=== PATIENT | male | born 2000 | race American Indian/Alaskan Native ===

== ENCOUNTER 2021-06-08 14:40 | Emergency (ER) | payer SELFPAY ==
--- NOTE | 2021-06-08 19:21 | Event Note ---
ED Screening Note Date of service: 06/08/21 Time: 19:19 ED Screening Note: 21-year-old male patient presents to the emergency department with complaints of dizziness, nausea, lightheadedness, and chills starting 2 days ago. Patient has not been tested for COVID-19 since his symptoms began. Patient states his symptoms began after drinking alcohol. No history of similar symptoms. General: Awake, appropriately interactive. Anxious, tearful. Neck: Supple. Full range of motion intact. Cardiovascular: Normal peripheral perfusion. Pulmonary: No respiratory distress. Patient is speaking normally without use of accessory muscles. Skin: No apparent rashes or lesions. Neurological: No facial asymmetry. Speech is clear. Follows commands. Patient is alert and oriented. Musculoskeletal: Moves all four extremities spontaneously with normal range of motion. I have greeted and performed a focused rapid initial assessment of this patient. A comprehensive ED assessment and evaluation of the patient, analysis of all test results, and completion of the medical decision-making process will be conducted by additional ED providers. This initial assessment/diagnostic orders/clinical plan/treatment(s) is/are subject to change based on patients health status, clinical progression and re-assessment. Further treatment and workup at subsequent clinical provider's discretion. Patient/guardian urged not to elope from the ED as their condition may be serious if not clinically assessed and managed.
[2021-06-08 20:07] LABS: Basophils % (Auto) 0.4 % (0.0-1.8); Eosinophils % (Auto) 0.2 % (0.0-4.3); Hematocrit 48.6 % (35.5-45.6); Hemoglobin 16.9 gm/dl (11.8-15.2); Lymphocytes # (Auto) 1.9 K/mm3 (1.2-5.4); Lymphocytes % (Auto) 27.2 % (13.4-35.0); Mean Corpuscular HGB Conc 35 % (32-34); Mean Corpuscular Volume 92 fl (84-94); Monocytes # (Auto) 0.7 K/mm3 (0.0-0.8); Monocytes % (Auto) 9.7 % (0.0-7.3); Platelet Count 161 K/mm3 (140-440); Red Blood Count 5.29 M/mm3 (3.65-5.03); Red Cell Distribution Width 13.6 % (13.2-15.2)
[2021-06-08 20:11] LABS: Alanine Aminotransferase 13 units/L (7-56); Albumin 5.1 g/dL (3.9-5); BUN/Creatinine Ratio 16; Blood Urea Nitrogen 16 mg/dL (9-20); Calcium 10.5 mg/dL (8.4-10.2); Hemolysis Index 11
[2021-06-08 22:51] LABS: Amphetamine Screen,Urine Negative; Benzodiazepines Screen,Urine Negative; Cocaine Screen,Urine Negative; Methadone Screen,Urine Negative; Opiate Screen,Urine Negative
[2021-06-08 23:03] LABS: Cannabinoid Screen,Urine Positive
[2021-06-09] MEDS ORDERED: ONDANSETRON 4 MG ODT TAB PO ONE (20:41)
[2021-06-09] MEDS ORDERED: ACETAMINOPHEN 500 MG TAB PO ONE (20:41)
[2021-06-09] MEDS ORDERED: SODIUM CHLORIDE 0.9% 1000 ML 1,000 ML IV ONE (20:52)
[2021-06-09] MEDS ORDERED: FAMOTIDINE 20 MG/2 ML INJ IV ONE (20:52)
[2021-06-09 21:37] LABS: Basophils % (Auto) 0.4 % (0.0-1.8); Eosinophils % (Auto) 0.3 % (0.0-4.3); Lymphocytes % (Auto) 29.9 % (13.4-35.0); Mean Corpuscular HGB Conc 36 % (32-34); Mean Corpuscular Volume 91 fl (84-94); Monocytes # (Auto) 0.7 K/mm3 (0.0-0.8); Monocytes % (Auto) 10.2 % (0.0-7.3); Platelet Count 159 K/mm3 (140-440); Red Cell Distribution Width 13.4 % (13.2-15.2)
[2021-06-09 21:38] LABS: Hematocrit 45.7 % (35.5-45.6); Hemoglobin 16.4 gm/dl (11.8-15.2)
[2021-06-09 21:57] LABS: Alanine Aminotransferase 13 units/L (7-56); Albumin 5.1 g/dL (3.9-5); BUN/Creatinine Ratio 16; Blood Urea Nitrogen 14 mg/dL (9-20); Calcium 10.2 mg/dL (8.4-10.2); Hemolysis Index 13
--- NOTE | 2021-06-09 22:29 | Emergency Department Report ---
ED General Adult HPI - General Chief complaint: Upper Respiratory Infection Stated complaint: DIZZY Source: patient Mode of arrival: Ambulatory Limitations: No Limitations - History of Present Illness Initial comments: Patient is a 21-year-old -[place] male with no past medical history presents to the ED with complaint of acute onset persistent diffuse body aches and pains, generalized weakness and fatigue, lightheadedness, nausea and headache for the last 2 days. Patient admits to heavy alcohol consumption 3 days ago. Patient states that he has not been eating anything because of persistent lack of appetite and nausea and in the last 2 days has been feeling generally weak. Patient states that his body aches and pains are worse with movement. Patient states that he is not vaccinated against COVID-19 viral infection. Patient however denies fever, chills, vomiting, diarrhea, nasal and sinus congestion, sore throat, change in vision, dysuria, urinary frequency and urgency, abdominal pain, chest pain or shortness of breath and cough. MD Complaint: Generalized weakness, generalized fatigue, nausea, lightheadedness -: Sudden, days(s) (2) Radiation: non-radiation Severity scale (0 -10): 5 Quality: aching, sharp Consistency: constant Improves with: none Worsens with: movement Associated Symptoms: denies other symptoms, headaches, loss of appetite, malaise, nausea/vomiting. denies: confusion, chest pain, cough, diaphoresis, fe jenniffer/chills, rash, seizure, shortness of breath, syncope, weakness Treatments Prior to Arrival: none - Related Data Previous Rx's Medication Instructions Recorded Last Taken Type Acetaminophen [Tylenol] 500 mg PO Q6HR PRN #30 tablet 06/09/21 Unknown Rx Famotidine [Pepcid] 20 mg PO Q12H #30 tablet 06/09/21 Unknown Rx Ondansetron [Zofran Odt] 4 mg PO Q6HR PRN #5 tab.rapdis 06/09/21 Unknown Rx Allergies Allergy/AdvReac Type Severity Reaction Status Date / Time ibuprofen AdvReac Hives Verified 06/09/21 17:40 ED Review of Systems ROS: Stated complaint: DIZZY Other details as noted in HPI Constitutional: malaise, weakness. denies: chills, fever Eyes: denies: eye pain, eye discharge, vision change ENT: denies: ear pain, throat pain Respiratory: denies: cough, shortness of breath, wheezing Cardiovascular: denies: chest pain, palpitations Endocrine: no symptoms reported Gastrointestinal: nausea. denies: abdominal pain, vomiting, diarrhea Genitourinary: denies: urgency, dysuria Musculoskeletal: back pain, arthralgia, myalgia. denies: joint swelling Skin: denies: rash, lesions Neurological: denies: headache, weakness, paresthesias Psychiatric: denies: anxiety, depression Hematological/Lymphatic: denies: easy bleeding, easy bruising ED Past Medical Hx - Past Medical History Previous Medical History?: No - Surgical History Past Surgical History?: No - Medications Home Medications: Home Medications Medication Instructions Recorded Confirmed Last Taken Type Acetaminophen [Tylenol] 500 mg PO Q6HR PRN #30 tablet 06/09/21 Unknown Rx Famotidine [Pepcid] 20 mg PO Q12H #30 tablet 06/09/21 Unknown Rx Ondansetron [Zofran Odt] 4 mg PO Q6HR PRN #5 tab.rapdis 06/09/21 Unknown Rx ED Physical Exam - General Limitations: No Limitations General appearance: alert, in no apparent distress - Head Head exam: Present: atraumatic, normocephalic, normal inspection - Eye Eye exam: Present: normal appearance, PERRL, EOMI Pupils: Present: normal accommodation - ENT ENT exam: Present: normal exam, normal orophraynx, mucous membranes moist, TM's normal bilaterally, normal external ear exam - Neck Neck exam: Present: normal inspection, full ROM - Respiratory Respiratory exam: Present: normal lung sounds bilaterally. Absent: respiratory distress, wheezes, rhonchi, chest wall tenderness, accessory muscle use, decreased breath sounds, prolonged expiratory - Cardiovascular Cardiovascular Exam: Present: regular rate, normal rhythm, normal heart sounds. Absent: systolic murmur, diastolic murmur, rubs, gallop - GI/Abdominal GI/Abdominal exam: Present: soft, normal bowel sounds. Absent: tenderness, guarding, hyperactive bowel sounds, hypoactive bowel sounds, organomegaly - Extremities Exam Extremities exam: Present: normal inspection, full ROM, normal capillary refill - Back Exam Back exam: Present: normal inspection, full ROM. Absent: tenderness, CVA tenderness (R), CVA tenderness (L), muscle spasm, paraspinal tenderness, vertebral tenderness - Neurological Exam Neurological exam: Present: alert, oriented X3, CN II-XII intact, normal gait, reflexes normal - Psychiatric Psychiatric exam: Present: normal affect, normal mood, anxious - Skin Skin exam: Present: warm, dry, intact, normal color. Absent: rash ED Course Vital Signs 06/08/21 15:42 Temperature 98.3 F Pulse Rate 67 Respiratory 18 Rate Blood Pressure 131/82 O2 Sat by Pulse 99 Oximetry ED Medical Decision Making - Lab Data Result diagrams: 06/09/21 21:25 06/09/21 21:25 - Radiology Data [facility] [address] [place] [address] XRay Report Signed Patient: MEDARDO MONTANA MR#: [id number] 41 : 2000 Acct:[id number] Age/Sex: 21 / M ADM Date: 06/09/21 Loc: ED Attending Dr: Ordering Physician: ZHOU WONG Date of Service: 06/09/21 Procedure(s): XR chest routine 2V Accession Number(s): [id number] cc: ZHOU WONG Fluoro Time In Minutes: CHEST 2 VIEWS INDICATION / CLINICAL INFORMATION: SOB STUDY TIME: 2026 COMPARISON: None available. FINDINGS: SUPPORT DEVICES: None. HEART / MEDIASTINUM: No significant abnormality. LUNGS / PLEURA: No significant pulmonary or pleural abnormality. No pneumothorax. ADDITIONAL FINDINGS: No significant additional findings. IMPRESSION: No significant acute abnormality Signer Name: Carl Miller MD Signed: 06/09/2021 8:36 PM Workstation Name: [id number] Transcribed By: GJ Dictated By: Carl Miller MD Electronically Authenticated By: Carl Miller MD Signed Date/Time: 06/09/212035 DD/ 34 TD/TT: - Medical Decision Making This is a 21-year-old -[place] male with no past medical history presents to the ED with complaint of acute onset persistent diffuse body aches and pains, generalized weakness and fatigue, lightheadedness, nausea and headache for the last 2 days. Patient admits to heavy alcohol consumption 3 days ago. Patient states that he has not been eating anything because of persistent lack of appetite and nausea and in the last 2 days has been feeling generally weak. Patient states that his body aches and pains are worse with movement. Patient states that he is not vaccinated against COVID-19 viral infection. In the ED, patient is alert and oriented x3 and is not in any distress with normal vital signs. Patient initially presented to the ED 24 hours ago but eloped from the ED after labs have been drawn. Patient returned to the ED again about 12 hours ago complaining that his symptoms have worsened. Lab test results were reviewed and are all nonactionable. Chest x-ray showed no acute cardiopulmonary abnormalities or pneumonitis. Patient was treated for pain in the ED and also given antiemetics and normal saline 1 L IV bolus x1. On reevaluation, patient felt better, patient is hemodynamically stable, ambulatory in the ED with no difficulties with oxygen saturation 100% in room air. Patient was therefore discharged home on medications and advised to follow-up with his primary care physician in 3 to 5 days for reevaluation or return to the ED immediately if symptoms get worse. - Differential Diagnosis Viral syndrome; dehydration; pneumonia; COVID-19 Critical care attestation.: If time is entered above; I have spent that time in minutes in the direct care of this critically ill patient, excluding procedure time. ED Disposition Clinical Impression: Generalized weakness, Acute viral syndrome Disposition: 01 HOME / SELF CARE / HOMELESS Is pt being admited?: No Does the pt Need Aspirin: No Condition: Stable Instructions: Weakness, [id number], Viral Illness, Adult Additional Instructions: All lab test results were reviewed and are all nonactionable. Chest x-ray showed no acute cardiopulmonary abnormalities or pneumonitis. Your symptoms are likely due to a viral syndrome. Therefore take medications with food, drink plenty of fluids and follow-up with your primary care physician in 3 to 5 days for reevaluation. Return to the ED immediately if symptoms get worse. Prescriptions: Acetaminophen [Tylenol] 500 mg PO Q6HR PRN #30 tablet PRN Reason: Pain , Severe (7-10) Famotidine [Pepcid] 20 mg PO Q12H #30 tablet Ondansetron [Zofran Odt] 4 mg PO Q6HR PRN #5 tab.rapdis PRN Reason: Nausea Referrals: [facility] [Provider Group] - 3-5 Days Time of Disposition: 22:31 Print Language: SPANISH
[2021-06-09 23:25] VITALS: BP 107/77
--- NOTE | 2021-06-12 13:21 | Electrocardiograph Report ---
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
== END 2021-06-09 23:25 | disposition home or self-care (01) ==
LOC: ED 14:40
DX: B34.9 Viral infection, unspecified (principal); R53.1 Weakness; Z79.899 Other long term (current) drug therapy; Z88.6 Allergy status to analgesic agent
CPT/HCPCS: 36415; 80053; 80307; 83690; 83735; 85025; 96361; 96374; 99283; J7030; 80320; 93005; G0480; Q0162

== ENCOUNTER 2021-06-09 17:35 | Emergency (ER) | payer OTHER ==
[2021-06-09 17:56] VITALS: BP 127/73
--- NOTE | 2021-06-09 20:40 | XRay Report ---
CHEST 2 VIEWS INDICATION / CLINICAL INFORMATION: SOB STUDY TIME: 2026 COMPARISON: None available. FINDINGS: SUPPORT DEVICES: None. HEART / MEDIASTINUM: No significant abnormality. LUNGS / PLEURA: No significant pulmonary or pleural abnormality. No pneumothorax. ADDITIONAL FINDINGS: No significant additional findings. IMPRESSION: No significant acute abnormality Signer Name: Carl Miller MD Signed: 06/09/2021 8:36 PM Workstation Name: [id number]
== END 2021-06-10 20:55 | disposition home or self-care (01) ==
LOC: ED 17:35
DX: R53.1 Weakness (principal); Z53.21 Procedure and treatment not carried out due to patient leaving prior to being seen by health care provider
CPT/HCPCS: 71046; 93005